=== PATIENT | male | born 1950 | race Caucasian/White ===

== ENCOUNTER 2020-03-21 06:38 | Day surgery (SDC) | payer MEDICARE ==
[2020-03-21] MEDS ORDERED: Sodium Chloride 0.9% 1,000 ML IV SCH (07:30)
[2020-03-21] MEDS ORDERED: Propofol 200 MG/20 ML SDV ONE (08:04)
[2020-03-21] MEDS ORDERED: fentaNYL 100 MCG/2 ML SDV ONE (08:04)
[2020-03-21] MEDS ORDERED: Midazolam 1 MG/ML 2 ML SDV ONE (08:05)
[2020-03-21 10:09] VITALS: BP 136/76; PULSE 63
--- NOTE | 2020-03-22 08:34 | OR ---
DATE OF PROCEDURE: 03/21/2020 SURGEON: Romain Singh MD PROCEDURE: Colonoscopy. FINDINGS: 1. Cecal polyp, approximately 5 mm, completely removed using cold biopsy forceps. 2. Ascending colon polyp, approximately 5 mm, completely removed using hot snare wire device. COMPLICATION: None. GUITAR TEACHER: None. ANESTHESIA: MAC. PREOPERATIVE DIAGNOSIS: Screening colonoscopy. POSTOPERATIVE DIAGNOSIS: Screening colonoscopy. RISKS: Risks, benefits, alternatives, and limitations including, but not limited to infection, bleeding, and perforation were explained to the patient, who wished to proceed. PROCEDURE IN DETAIL: The patient was placed in the left lateral decubitus position. Digital rectal exam was performed without abnormality. Scope was introduced and advanced atraumatically to the ileocecal valve. The scope was brought back to the ascending, transverse, descending colon, and retroflexed. No evidence of old or new blood. No masses. No diverticulosis. The aforementioned polyp was identified and completely removed. Greater than 10 minutes was spent removing the scope. The patient tolerated the procedure well. Romain Singh MD /[id number]
== END 2020-03-21 10:00 | disposition home or self-care (01) ==
LOC: JP.SDS 06:38
PROVIDERS: ATTEND Surgery
DX: Z12.11 Encounter for screening for malignant neoplasm of colon (principal); D12.0 Benign neoplasm of cecum; D12.2 Benign neoplasm of ascending colon; I10 Essential (primary) hypertension; E11.9 Type 2 diabetes mellitus without complications
CPT/HCPCS: 45380; 45385; 88305; J2250; J2704; J3010; J7030

== ENCOUNTER 2023-07-16 08:00 | Day surgery (SDC) | payer MEDICARE ==
[2023-07-16] MEDS: Sodium Chloride 0.9% 1,000 ML IV SCH (08:25)
[2023-07-16] MEDS ORDERED: Propofol 200 MG/20 ML SDV ONE (08:59)
[2023-07-16] MEDS ORDERED: fentaNYL 100 MCG/2 ML SDV ONE (08:59)
[2023-07-16 11:19] VITALS: BP 130/65; PULSE 68
== END 2023-07-16 11:20 | disposition home or self-care (01) ==
LOC: JP.SDS 08:00
PROVIDERS: ATTEND Surgery
DX: Z12.11 Encounter for screening for malignant neoplasm of colon (principal); D12.0 Benign neoplasm of cecum; I11.0 Hypertensive heart disease with heart failure; I50.9 Heart failure, unspecified; E11.9 Type 2 diabetes mellitus without complications
CPT/HCPCS: 45385; 88305; J2704; J3010; J7030